=== PATIENT | male | born 1960 | race Caucasian/White ===

== ENCOUNTER 2019-09-05 10:20 | Outpatient (CLI) | payer BC, SELFPAY ==
--- NOTE | 2019-09-05 10:36 | ECG_ITS ---
Measurements Intervals [place] Rate: 59 P: 31 CA: 199 QRS: 10 QRSD: 85 T: 47 QT: 384 QTc: 382 Interpretive Statements SINUS BRADYCARDIA EARLY PRECORDIAL R/S TRANSITION BORDERLINE ECG Electronically Signed On 09-05-2019 15:35:41 SENIOR DATA ANALYST by Rinku Cheek D.O.
== END 2019-09-05 10:21 | disposition home or self-care (01) ==
PROVIDERS: PCP Internal Medicine; Visit Provider Internal Medicine
DX: I10 Essential (primary) hypertension (principal); R94.31 Abnormal electrocardiogram [ECG] [EKG]
CPT/HCPCS: 93005

== ENCOUNTER 2019-10-09 00:29 | Day surgery (SDC) | payer BC, SELFPAY ==
[2019-10-03 14:21] VITALS: BMI 33.5
--- NOTE | 2019-10-09 13:10 | WPDANESEPPF ---
Anes - Initial Pre Proc Eval Procedure: Operation Date: 10/09/19 14:30 Proposed Procedures p Screening Colonoscopy - Mitch Connell MD Date/Time: 10/09/19 13:10 Surgeon: Mitch Connell MD Pre Op Diagnosis: neoplasm screening Patient Data Age: 59 Gender: M Height: 5 ft 8 in Weight: 100 kg Allergies Allergy/AdvReac Type Severity Reaction Status Date / Time No Known Allergies Allergy Verified 10/03/19 14:15 Home Medications Medication Instructions Recorded Confirmed Type aspirin 81 mg tablet,delayed 81 mg PO DAILY 09/05/19 10/03/19 History release escitalopram oxalate 10 mg tablet 10 mg PO DAILY #90 tablet 09/05/19 10/03/19 Rx lisinopril 40 mg tablet 40 mg PO DAILY #90 tablet 09/05/19 10/03/19 Rx metformin 1,000 mg tablet 1,000 mg PO BID #180 tablet 09/05/19 10/03/19 Rx multivitamin 1 tablet PO DAILY 09/05/19 10/03/19 History pravastatin 40 mg tablet 40 mg PO DAILY #90 tablet 09/05/19 10/03/19 Rx Patient hx anesthesia problems: none Family hx anesthesia problems: none PMFSH Past Medical History Medical History (Updated 10/09/19 @ 13:14 by Keegan Le MD) Depression Diabetes Hypertension Family History Family History Mother Diabetes mellitus Bladder cancer Father Heart disease Social History Social History Smoking status: Never smoker Alcohol intake: current Gender identity (if verbalized by the patient): Male Anes - Eval Final PreProcedure Day of Procedure 10/09/19 13:10 Patient weight: obese Heart: regular rate and rhythm Lungs: clear to auscultation Airway: Mallampati scale class II Neurological: alert and oriented Last oral intake: >/= 8 hours ASA classification: III Emergent: no Anesthetic plan: proceed Anesthesia type and monitoring: general GIVS and standard monitoring Informed Consent: The patient's anesthetic plan and its attendant risks and benefits were discussed with the patient/family/POA. Questions were solicited and answers provided to the satisfaction of the patient/family/POA.
[2019-10-09 13:20] VITALS: BP 153/93; PULSE 79; RESP 18; TEMP 36.6; O2SAT 98
[2019-10-09] MEDS: LACTATED RINGERS 1,000 ML 150 ML IV CONT (13:28)
[2019-10-09 13:46] LABS: Glucose Point of Care 97 (65-105)
--- NOTE | 2019-10-09 14:52 | PM.HPGS ---
History of Present Illness History of Present Illness Consent: Risks, benefits, and alternatives have been discussed and questions answered. Patient agrees to proceed with procedure. Chief complaint: neoplasm screening Narrative: Mike Davila is a 59 year old male here for colonoscopy, last one about 8 years ago with polyps Review of Systems Constitutional: Constitutional: Denies headache(s) and Denies weakness Eyes: Eyes: Denies blurry vision ENT: Reports Normal hearing present, Denies headache(s) and Denies neck pain Cardiovascular: Cardiovascular: Denies chest pain and Denies dyspnea Respiratory: Respiratory: Denies dyspnea Gastrointestinal: Gastrointestinal: Reports no additional gastrointestinal complaints Genitourinary: Genitourinary: Denies dysuria Musculoskeletal: Musculoskeletal: Denies neck pain Integumentary/Breasts: Skin/Breast: Denies dry skin Neurologic: Reports Normal hearing present, Denies headache(s) and Denies weakness Psychiatric: Psychiatric: Denies anxiety Endocrine: Endocrine: Denies change in body appearance Hematologic/Lymphatic: Hematologic/Lymphatic: Denies easy bleeding Allergic/Immunologic: Allergic/Immunologic: Denies urticaria PMFSH Past Medical History Medical History (Updated 10/09/19 @ 14:53 by Mitch Connell MD) Depression Diabetes Hypertension Family History Family History Mother Diabetes mellitus Bladder cancer Father Heart disease Social History Social History Smoking status: Never smoker Alcohol intake: current Gender identity (if verbalized by the patient): Male Meds Home Medications and Allergies Home Medications Medication Instructions Recorded Confirmed Type aspirin 81 mg tablet,delayed 81 mg PO DAILY 09/05/19 10/09/19 History release escitalopram oxalate 10 mg tablet 10 mg PO DAILY #90 tablet 09/05/19 10/09/19 Rx lisinopril 40 mg tablet 40 mg PO DAILY #90 tablet 09/05/19 10/09/19 Rx metformin 1,000 mg tablet 1,000 mg PO BID #180 tablet 09/05/19 10/09/19 Rx multivitamin 1 tablet PO DAILY 09/05/19 10/09/19 History pravastatin 40 mg tablet 40 mg PO DAILY #90 tablet 09/05/19 10/09/19 Rx Allergies Allergy/AdvReac Type Severity Reaction Status Date / Time No Known Allergies Allergy Verified 10/09/19 13:15 Vital Signs Vital Signs - 24 hr 10/09/19 13:20 Temperature 97.8 F Pulse Rate 79 Respiratory Rate 18 Blood Pressure 153/93 H Pulse Oximetry 98 Exam Const: General: comfortable and no acute distress HENMT: General nose exam: Normal nares present Eyes: General: appearance normal, both eyes and all related structures Neck: Neck: no JVD Resp: Auscultation: clear to auscultation bilaterally Cardio: Rate: regular rate Rhythm: regular rhythm GI: Inspection: non-distended GI Palp: Yes Soft to palpation Skin: General skin exam: normal color Neuro: General: gait normal Speech: normal speech Extrem: General: normal to inspection Psych: Mental Status: mental status grossly normal Assessment and Plan Assessment and plan (1) Encounter for screening colonoscopy: Code(s): Z12.11 - Encounter for screening for malignant neoplasm of colon Status: Acute Assessment and Plan: will proceed with colonoscopy (2) Hypertension: Qualifiers: Hypertension type: essential hypertension Qualified Code(s): I10 - Essential (primary) hypertension Code(s): I10 - Essential (primary) hypertension Status: Acute
[2019-10-09 15:15] VITALS: BP 80/49; PULSE 68; RESP 23; O2SAT 99
[2019-10-09 15:25] VITALS: BP 94/50; PULSE 70; RESP 20; O2SAT 99
[2019-10-09 15:35] VITALS: BP 101/67; PULSE 63; RESP 23; O2SAT 99
== END 2019-10-09 15:42 | disposition home or self-care (01) ==
PROVIDERS: PCP Internal Medicine; Visit Provider Internal Medicine Gastroenterology
PROC: 0DJD8ZZ Inspection of Lower Intestinal Tract, Via Natural or Artificial Opening Endoscopic (ICD-10-PCS; CPT 45378; principal; 2019-10-09 14:30)
DX: Z12.11 Encounter for screening for malignant neoplasm of colon (principal); D12.3 Benign neoplasm of transverse colon; K57.30 Diverticulosis of large intestine without perforation or abscess without bleeding; K64.8 Other hemorrhoids; I10 Essential (primary) hypertension; E11.9 Type 2 diabetes mellitus without complications; F32.9 Major depressive disorder, single episode, unspecified; Z79.82 Long term (current) use of aspirin; Z79.84 Long term (current) use of oral hypoglycemic drugs; E66.9 Obesity, unspecified; Z68.33 Body mass index [BMI] 33.0-33.9, adult
CPT/HCPCS: 45385; 88305; J2704; J7120

== ENCOUNTER 2020-05-30 13:31 | Outpatient (CLI) | payer BC, SELFPAY ==
--- NOTE | ~2020-05-30 | CT_ITS ---
EXAMINATION: CT abdomen pelvis wo con DATE: 05/30/2020 13:55 INDICATION: Abdominal pain TECHNIQUE: Computed tomography (CT) of the abdomen and pelvis was performed without intravenous contr ast. Automated exposure control and iterative reconstruction technique were employed. The dose-length product was 761.36 mGy-cm. COMPARISON: None FINDINGS: Lung bases are clear. Heart size is normal. No pericardial or pleural effusion. Liver, gallbladder, p ancreas and bilateral adrenal glands are normal. Tiny splenic calcification consistent with old granu lomatous disease. 1.2 cm left renal cyst. 1.6 cm stone at a lower pole calyx of the right kidney. The re are 3 additional 1 mm stones in the right kidney. No additional stones along the normal bilateral ureters or at the left kidney. No hydronephrosis. Normal appendix. There is mild colonic diverticulos is with a sigmoid predominance. There is no adjacent inflammatory change to suggest diverticulitis. No bowel obstruction. Diffuse bladder wall thickening to at least in part to partially decompressed s garcia. No free intraperitoneal gas or fluid. No pathologically enlarged abdominal or pelvic lymphadeno denis. Increased fat within the bilateral inguinal canals which could be related to either hernias or body habitus. Moderate lower thoracic and mild lumbar spondylosis. IMPRESSION: 1. Nonobstructing right nephrolithiasis. 2. Mild diverticulosis. 3. Diffuse bladder wall thickening to at least in part to partially decompressed state although diffe rential would include cystitis, either acute or chronic. Correlate with urinalysis. Reviewed, dictated and finalized at location B. IMPRESSION: 1. Nonobstructing right nephrolithiasis. 2. Mild diverticulosis. 3. Diffuse bladder wall thickening to at least in part to partially decompresse d state although differential would include cystitis, either acute or chronic. Correlate with urinalysis.
== END 2020-05-30 13:32 | disposition home or self-care (01) ==
LOC: ANHIMG 13:37
PROVIDERS: PCP Internal Medicine; Visit Provider Internal Medicine
DX: N39.0 Urinary tract infection, site not specified (principal); R10.9 Unspecified abdominal pain; N20.0 Calculus of kidney; K57.30 Diverticulosis of large intestine without perforation or abscess without bleeding
CPT/HCPCS: 74176

== ENCOUNTER 2020-07-09 14:42 | Outpatient (CLI) | payer BC, SELFPAY ==
--- NOTE | ~2020-07-09 | XR_ITS ---
EXAMINATION: XR abdomen/kub 1V INDICATION: Calcium kidney stone TECHNIQUE: Supine views of the abdomen were obtained on 2 radiographs. COMPARISON: CT, 05/30/2020 FINDINGS: There is an unchanged 1.5 cm stone of the right kidney lower pole. No stones are identified in the left kidney or along the expected courses of the ureters or bladder. There is a phlebolith of left pelvis. A calcification projecting over the right upper quadrant corresponds to a right lower l obe granuloma seen on the comparison CT. The bowel gas pattern is normal. IMPRESSION: 1. Right nephrolithiasis. Reviewed, dictated and finalized at location A. MAKING SUPERVISOR IMPRESSION: 1. Right nephrolithiasis.
== END 2020-07-09 14:43 | disposition home or self-care (01) ==
PROVIDERS: PCP Internal Medicine; Visit Provider Urology
DX: N20.0 Calculus of kidney (principal)
CPT/HCPCS: 74018

== ENCOUNTER 2020-10-10 13:46 | Outpatient (CLI) | payer BC, SELFPAY | END 2020-10-10 13:47 | disposition home or self-care (01) | LOC: ANHCOVIDVC 13:46 | PROVIDERS: PCP Internal Medicine | DX: Z23 Encounter for immunization (principal) | CPT/HCPCS: 0001A; 91300 ==

== ENCOUNTER 2020-10-31 13:44 | Outpatient (CLI) | payer BC, SELFPAY | END 2020-10-31 13:45 | disposition home or self-care (01) | LOC: ANHCOVIDVC 13:44 | PROVIDERS: PCP Internal Medicine | DX: Z23 Encounter for immunization (principal) | CPT/HCPCS: 0002A; 91300 ==

== ENCOUNTER 2020-12-19 10:32 | Outpatient (CLI) | payer BC, SELFPAY ==
--- NOTE | 2020-12-19 10:30 | ECG_ITS ---
Measurements Intervals [place] Rate: 58 P: 41 CT: 210 QRS: 12 QRSD: 87 T: 51 QT: 375 QTc: 369 Interpretive Statements SINUS BRADYCARDIA WITH FIRST DEGREE AV BLOCK BASELINE ARTIFACT- I, II, III, AVR, AVL, AVF ABNORMAL ECG Electronically Signed On 12-19-2020 11:59:01 CDT by Rinku Cheek D.O.
[2020-12-19 11:18] LABS: INR 0.8; Prothrombin Time 11.7 Seconds (11.1-14.7)
[2020-12-19 11:19] LABS: Partial Thromboplastin Time 23.5 SECONDS (22.3-36.8)
== END 2020-12-19 10:33 | disposition home or self-care (01) ==
LOC: ANHSURGERY 10:35
PROVIDERS: PCP Internal Medicine; Visit Provider Urology
DX: Z01.818 Encounter for other preprocedural examination (principal); E11.9 Type 2 diabetes mellitus without complications; N20.0 Calculus of kidney; E78.5 Hyperlipidemia, unspecified; I10 Essential (primary) hypertension; R94.31 Abnormal electrocardiogram [ECG] [EKG]
CPT/HCPCS: 36415; 85610; 85730; 87086; 93005

== ENCOUNTER → 2020-12-23 01:19 | Outpatient (CLI) | payer BC, SELFPAY ==
[2020-12-24 19:27] LABS: SARS-CoV-2 RNA PCR Negative
== END ==
PROVIDERS: PCP Internal Medicine; Visit Provider Urology
DX: Z01.812 Encounter for preprocedural laboratory examination (principal); Z20.822 Contact with and (suspected) exposure to COVID-19
CPT/HCPCS: C9803; U0003; U0005

== ENCOUNTER 2020-12-26 00:54 | Day surgery (SDC) | payer BC, SELFPAY ==
[2020-12-16 12:39] VITALS: BMI 31.1
--- NOTE | 2020-12-25 10:32 | WPDANESEPPF ---
Anes - Initial Pre Proc Eval Procedure: Operation Date: 12/26/20 08:30 Proposed Procedures p Right Renal Extracorporeal Shock Wave Lithotripsy - Alfredo Morales MD Date/Time: 12/25/20 10:32 Surgeon: Alfredo Morales MD Pre Op Diagnosis: right renal calculus Patient Data Age: 60 Gender: M Height: 1.73 m Weight: 93 kg Allergies Allergy/AdvReac Type Severity Reaction Status Date / Time No Known Allergies Allergy Verified 12/26/20 07:27 Home Medications Medication Instructions Recorded Confirmed Type aspirin 81 mg tablet,delayed 81 mg PO DAILY 09/05/19 12/26/20 History release multivitamin 1 tablet PO DAILY 09/05/19 12/26/20 History lisinopril 40 mg tablet 40 mg PO DAILY #90 tablet 12/31/19 12/26/20 Rx pravastatin 40 mg tablet 40 mg PO DAILY #90 tablet 07/07/20 12/26/20 Rx citalopram 20 mg tablet 10 mg PO DAILY #45 tablet 10/06/20 12/26/20 Rx metformin 500 mg tablet 500 mg PO BID 12/08/20 12/26/20 History Patient hx anesthesia problems: none Family hx anesthesia problems: none [facility] Past Medical History Medical History (Updated 12/25/20 @ 10:33 by William Herrera DO) Asthma Depression Diabetes Dyslipidemia Hypertension RAVINDER (obstructive sleep apnea) Family History Family History Mother Diabetes mellitus Bladder cancer Father Heart disease Social History Social History (Updated 12/03/20 @ 11:25 by Fabi Hollis MA) Smoking packs per day: 1.75 Smoking cigarettes per day: 35.0 Years smoked: 40 Smoking pack-years: 70.00 Smoking status: Former smoker Tobacco type: cigarettes Second hand tobacco smoke exposure: No Smoking end date: 08/01/06 Alcohol intake: never Substance use: never Substance use type: does not use Living arrangements: with family Gender identity (if verbalized by the patient): Male Spiritual care concerns: No Anes - Eval Final PreProcedure Day of Procedure 12/25/20 10:32 Patient weight: obese Heart: regular rate and rhythm Lungs: clear to auscultation and normal air movement Airway: Mallampati scale class II Neurological: alert and oriented Last oral intake: >/= 8 hours ASA classification: III Emergent: no Anesthetic plan: proceed Anesthesia type and monitoring: general LMA and standard monitoring Informed Consent: The patient's anesthetic plan and its attendant risks and benefits were discussed with the patient/family/POA. Questions were solicited and answers provided to the satisfaction of the patient/family/POA.
[2020-12-26] VITALS (9 sets, daily range): BP systolic 104–146; BP diastolic 62–83; PULSE 61–76; RESP 12–18; TEMP 36–36.6; O2SAT 100
--- NOTE | ~2020-12-26 | XR_ITS ---
EXAMINATION: XR abdomen/kub 1V DATE: 12/26/2020 06:45 INDICATION: Right kidney stone. TECHNIQUE: A supine view of the abdomen on 2 radiographs was obtained. COMPARISON: CT abdomen and pelvis 05/30/2020, abdomen radiographs 07/09/2020 FINDINGS: There are no dilated loops of bowel. There are phleboliths in the pelvis. There are approxi mately 4 stones in right kidney lower pole measuring up to 15 mm. A calcified right lung nodule is co nsistent with old granulomatous disease. IMPRESSION: 1. Right kidney stones. Reviewed, dictated and finalized at location A. IMPRESSION: 1. Right kidney stones.
[2020-12-26] MEDS: LACTATED RINGERS 1,000 ML 30 ML IV CONT ×2 (07:15→09:20)
[2020-12-26 07:21] LABS: Glucose Point of Care 112 mg/dl (65-105)
--- NOTE | 2020-12-26 07:24 | WPDHPUPDATE1 ---
History and Physical Update Update Date/Time: 12/26/20 07:24 History and Physical has been reviewed, including an updated exam of the patient. There are NO changes in the patient's condition. Risks, benefits, and alternatives have been discussed and questions answered. Patient agrees to proceed with procedure.
--- NOTE | 2020-12-26 07:31 | WPDHPUPDATE1 ---
History and Physical Update Update Date/Time: 12/26/20 07:31 History and Physical has been reviewed, including an updated exam of the patient. There are NO changes in the patient's condition. Risks, benefits, and alternatives have been discussed and questions answered. Patient agrees to proceed with procedure. Will proceed with flex cysto, right retrograde, right stent placement, right renal eswl
[2020-12-26] MEDS: ceFAZolin 2 GM/D5W 50 ML 2 GM/50 ML BAG IVPB (08:27)
--- NOTE | 2020-12-26 09:08 | PM.PROC ---
Procedure Note - Detailed Date of procedure: 12/26/20 Pre-op diagnosis: right renal calculus Post-op diagnosis: same Procedure performed: Flexible cystoscopy, right retrograde pyelogram, right ureteral stent placement 4.8 Serbian contour, right renal lithotripsy Description of procedure: Patient is taken the operative suite correctly identified. Once anesthesia was obtained was placed in supine position was prepped and draped usual sterile fashion. Sixteen Serbian flexible scope inserted and bladder. He does have a mild bulbar urethral narrowing but this allowed passage of the scope. The bladder itself has no tumors. Right ureteral orifice was cannulated with a guidewire inserted up to the renal pelvis. We then placed a [place] in and did a pyelogram. This was to confirm placement of the stent in the renal pelvis. 4.8 Serbian contour stent was then passed over the guidewire with the proximal end in the renal pelvis distal end coiled in the bladder. Scope was removed. Patient was repositioned so that the stone was localized in both planes. Two thousand five hundred shocks were given to the stone. Patient tolerated procedure well without any complications taken to recovery room in stable condition. Anesthesia: GLMA Surgeon: Alfredo Morales MD Drains: Yes Packing: No Pathology: none sent Complications: No immediate complications Condition: stable Disposition: PACU
--- NOTE | 2020-12-26 11:06 | SUR.PHASEII ---
RN paged Dr. Morales overhead x2 to address aspirin. RN also called cell phone x2 and kept getting only static. RN told transitions manager and she got a hold of Dr. Morales through piano sounding board matcher via telephone.
[2020-12-30 09:36] LABS: Glucose Point of Care 114 mg/dl (65-105)
== END 2020-12-26 10:50 | disposition home or self-care (01) ==
PROVIDERS: PCP Internal Medicine; Visit Provider Urology
PROC: (CPT 50590; principal; 2020-12-26 08:30)
PROC: (CPT 52352; 2020-12-26 08:30)
DX: N20.0 Calculus of kidney (principal); E11.9 Type 2 diabetes mellitus without complications; I10 Essential (primary) hypertension; E78.5 Hyperlipidemia, unspecified; J45.909 Unspecified asthma, uncomplicated; G47.33 Obstructive sleep apnea (adult) (pediatric); F32.9 Major depressive disorder, single episode, unspecified; Z79.84 Long term (current) use of oral hypoglycemic drugs; Z79.82 Long term (current) use of aspirin; Z87.891 Personal history of nicotine dependence; E66.9 Obesity, unspecified; Z68.31 Body mass index [BMI] 31.0-31.9, adult
CPT/HCPCS: 52332; 50590; 74018; 82948; A9270; C1758; C1769; C2617; J0131; J0690; J1100; J2250; J2370; J2405; J2704; J3010; J7030; J7120; Q9966

== ENCOUNTER 2021-01-07 12:37 | Outpatient (CLI) | payer BC, SELFPAY ==
--- NOTE | ~2021-01-07 | XR_ITS ---
XR abdomen/kub 1V 01/07/2021 12:57 Indication: Right renal stone Procedure: KUB Comparison: 12/26/2020 Findings: There are clustered stones in the lower pole of the right kidney. There is a right internal ureteral stent present. There are multiple distal right ureteral stones. Bowel pattern is nonobstruc tive. No acute osseous abnormality. Lung bases are unremarkable. No acute osseous abnormality. Impression: 1: Right renal and distal ureteral stones. Right internal ureteral stent in expected position. Reviewed, dictated and finalized at location A. Impression: 1: Right renal and distal ureteral stones. Right internal ureteral stent in exp ected position.
== END 2021-01-07 12:38 | disposition home or self-care (01) ==
LOC: ANHIMG 12:40
PROVIDERS: PCP Internal Medicine; Visit Provider Urology
DX: N20.1 Calculus of ureter (principal)
CPT/HCPCS: 74018

== ENCOUNTER 2021-01-19 13:49 | Outpatient (CLI) | payer BC, SELFPAY ==
--- NOTE | ~2021-01-19 | XR_ITS ---
XR abdomen/kub 1V 01/19/2021 14:06 Indication: Renal stones Procedure: KUB Comparison: 01/07/2021 Findings: There is a right internal ureteral stent in expected position. There are right renal and di stal ureteral stones. Bowel gas pattern is nonobstructive. No acute osseous abnormality. Impression: 1: Right renal and distal ureteral stones. Reviewed, dictated and finalized at location B. Impression: 1: Right renal and distal ureteral stones.
== END 2021-01-19 13:50 | disposition home or self-care (01) ==
LOC: ANHIMG 13:53
PROVIDERS: PCP Internal Medicine; Visit Provider Urology
DX: N20.0 Calculus of kidney (principal)
CPT/HCPCS: 74018

== ENCOUNTER 2021-02-03 12:32 | Outpatient (CLI) | payer BC, SELFPAY ==
--- NOTE | ~2021-02-03 | XR_ITS ---
EXAMINATION: XR abdomen/kub 1V EXAM DATE: 02/03/2021 12:49 INDICATION: Calcium kidney stone. RT right-sided stent, kidney stones. TECHNIQUE: Frontal projection(s) of the abdomen for interpretation. Comparison is made to prior exami nation from 01/19/2021. FINDINGS: Right double-J ureteral stent in position. There are multiple stone fragments in the dista l aspect of the right ureter, probably some decrease in stone burden compared to prior study. There i s stool overlying the right renal contour, but there may be some small calyceal stone fragments as we ll. Left renal contour is unremarkable. Lung bases are clear. There are mild bony degenerative change s. IMPRESSION: 1. Multiple right ureteral stone fragments, mild decrease in stone burden. 2. Stent in position. Reviewed, dictated and finalized at location B.
== END 2021-02-03 12:33 | disposition home or self-care (01) ==
LOC: ANHIMG 12:36
PROVIDERS: PCP Internal Medicine; Visit Provider Urology
DX: N20.0 Calculus of kidney (principal)
CPT/HCPCS: 74018

== ENCOUNTER 2021-02-16 08:43 | Outpatient (CLI) | payer BC, SELFPAY ==
--- NOTE | 2021-03-04 15:06 | WPDHOMESLEEP ---
Sleep Study - Home Unattended Date of Study: 02/16/21 Ordering Provider: Ranjit Humphries MD Interpreting Provider: Bianca Vidales MD Home Sleep Study Type: Apnea Link Air Height: 1.73 m Weight: 92.986 kg Body Mass Index: 31.1 Neck Circumference (inches): 17 [place]: 10 Reason for Sleep Study history of obstructive sleep apnea, now has lost weight, repeat testing Sleep History Mike Davila is a 61 year old man with a history of obstructive sleep apnea. In August 19, 2005 he had a sleep study [facility] in [place] when he weighed 260 lb. In June 09, 2017 he had a sleep study at [facility] in [place] when he weighed 225 lb. Currently he weighs 205 lb. There is no family history of sleep problems. He has had 2 different CPAP machines but after losing weight he stopped using these. He rarely awakens from sleep feeling short of breath. He never awakens at night with heartburn, belching or coughing. He occasionally snores. He rarely snores loudly enough that others complain about it. He never has trouble sleeping with a cold. He does not wake up suddenly gasping for breath during the night. He does not have breathing problems at night observed by others. He rarely sweats excessively at night, rarely notices his heart pounding or beating irregularly at night and he rarely falls asleep during the day. He does not fall asleep involuntarily or while driving. He does not have loss of muscle tone was strong emotion. He does not have daytime difficulties due to excessive sleepiness. He does not feel paralyzed on waking or falling asleep. He does not have vivid dreamlike scenes upon awakening or falling asleep. He does not feel afraid to go to sleep. He does not have nightmares. He rarely remembers his dreams. He rarely has racing thoughts. He does not feel sad or depressed. He occasionally feels anxiety. He occasionally has muscular tension. He rarely notices parts of his body jerking. He rarely kicks at night. He occasionally has crawling and aching feelings in his legs. He occasionally has leg pain at night. He does not have morning jaw pain and does not grind his teeth during sleep. He rarely is bothered by pain during the day. He never is awakened by pain at night. He does not wake up feeling stiff the morning. He rarely wakes up with sore or achy muscles. He does not wake up with pain in the neck and spine. He has fatigue. He reports a 5-10 lb weight loss in the last year. Normal bedtime is 1:00 a.m. falling asleep within 20 minutes waking during the night to urinate. He wakes the morning at 6:00 a.m.. His weekend schedule is the same. He is getting between 4 and 6 hours of sleep at night. He takes naps in the afternoon or evening. A short nap may be refreshing. He feels better in the morning compared to other times of day. Habits: quit tobacco in 2006. Caffeine 3 cups, 10 oz each of coffee daily. No alcohol or recreational drugs. [facility] Past Medical History Medical History (Updated 03/04/21 @ 15:16 by Bianca Vidales MD) Asthma Depression Diabetes Dyslipidemia Hypertension Kidney stone RAVINDER (obstructive sleep apnea) Family History Family History Mother Diabetes mellitus Bladder cancer Father Heart disease Social History Social History Smoking packs per day: 1.75 Smoking cigarettes per day: 35.0 Years smoked: 40 Smoking pack-years: 70.00 Smoking status: Former smoker Tobacco type: cigarettes Second hand tobacco smoke exposure: No Smoking end date: 10/01/06 Additional smoking assessment comments: 30 yrs 1-2PPD Alcohol intake: current Alcohol use details: rare Substance use: never Substance use type: does not use Living arrangements: with family Gender identity (if verbalized by the patient): Male Spiritual care concerns: No Medications Ho
[2021-03-04 15:19] VITALS: BMI 31.1
== END 2021-02-17 10:08 | disposition home or self-care (01) ==
LOC: ANHCSM 08:43
PROVIDERS: PCP Internal Medicine; Visit Provider Internal Medicine
DX: G47.33 Obstructive sleep apnea (adult) (pediatric) (principal); G47.10 Hypersomnia, unspecified
CPT/HCPCS: 74018; 95806

== ENCOUNTER 2021-02-16 13:08 | Outpatient (CLI) | payer BC, SELFPAY ==
--- NOTE | ~2021-02-16 | XR_ITS ---
EXAMINATION: XR abdomen/kub 1V INDICATION: Calcium kidney stone TECHNIQUE: Supine views of the abdomen were obtained on 2 radiographs. COMPARISON: 02/03/2021 FINDINGS: A right internal ureteral stent is in expected position. There are at least five stones adj acent to the distal aspect of the stent which measure up to 6 mm. There is been slight decrease in nu mber of stones since the comparison examination. Punctate right nephrolithiasis is noted. A calcified granuloma is noted in the right lower lobe. IMPRESSION: 1. Multiple stones, with interval decrease in number, adjacent to the distal aspect of the right inte rnal ureteral stent which is in expected position. Reviewed, dictated and finalized at location B. IMPRESSION: 1. Multiple stones, with interval decrease in number, adjacent to the distal as pect of the right internal ureteral stent which is in expected position.
== END 2021-02-16 13:09 | disposition home or self-care (01) ==
LOC: ANHIMG 13:11
PROVIDERS: PCP Internal Medicine; Visit Provider Urology
DX: N20.0 Calculus of kidney (principal); Z96.0 Presence of urogenital implants
CPT/HCPCS: 74018

== ENCOUNTER 2021-02-26 07:59 | Outpatient (CLI) | payer BC, SELFPAY ==
[2021-02-26 09:41] LABS: Anion Gap 8 mmol/L (8-16); Blood Urea Nitrogen 17 mg/dL (9-20); Calcium 10.5 mg/dL (8.4-10.2); Carbon Dioxide 27 mmol/L (22-30); Chloride 104 mmol/L (98-107); Estimated Glomerular Filt Rate > 60; Glucose 104 mg/dL (65-110); Potassium 4.2 mmol/L (3.4-5.0); Sodium 139 mmol/L (137-145)
== END 2021-02-26 08:00 | disposition home or self-care (01) ==
LOC: ANHSURGERY 08:01
PROVIDERS: Anesthesiology; PCP Internal Medicine; Visit Provider Urology
DX: Z01.818 Encounter for other preprocedural examination (principal); N20.0 Calculus of kidney
CPT/HCPCS: 36415; 80048; 87086

== ENCOUNTER 2021-03-03 00:44 | Day surgery (SDC) | payer BC, SELFPAY ==
[2021-02-24 14:28] VITALS: BMI 31.1
[2021-03-03] VITALS (10 sets, daily range): BP systolic 100–132; BP diastolic 58–83; PULSE 58–69; RESP 11–16; TEMP 36.1–36.5; O2SAT 97–100
--- NOTE | ~2021-03-03 | XR_ITS ---
EXAMINATION: XR retrograde pyelo w/stent RT DATE: 03/03/2021 09:12 INDICATION: Right kidney stones. TECHNIQUE: 7 intraoperative fluoroscopic views of the abdomen and pelvis were obtained. I was not pre sent. Fluoroscopy exposure time was 25 seconds. COMPARISON: Abdomen radiographs 02/16/2021 FINDINGS: The repair electric motor assembler images demonstrate a right internal ureteral stent in expected position. The righ t-sided retrograde pyelogram is unremarkable. The final images demonstrate a right internal ureteral stent in expected position. IMPRESSION: 1. Right internal ureteral stent exchange with new stent in expected position. Reviewed, dictated and finalized at location A.
[2021-03-03] MEDS: LACTATED RINGERS 1,000 ML 30 ML IV CONT ×2 (07:01→09:56)
[2021-03-03 07:04] LABS: Glucose Point of Care 112 mg/dl (65-105)
--- NOTE | 2021-03-03 07:49 | WPDANESEPPF ---
Anes - Initial Pre Proc Eval Procedure: Operation Date: 03/03/21 08:30 Proposed Procedures p Cystoscopy, Right Retrograde Pyelogram, Right Ureteroscopy, Possible Stone Extraction, Possible Stent - Alfredo Morales MD s Possible Holmium Laser Procedure - Alfredo Morales MD Date/Time: 03/03/21 07:49 Surgeon: Alfredo Morales MD Pre Op Diagnosis: renal kindey stones Patient Data Age: 60 Gender: M Height: 1.73 m Weight: 97 kg Last Vital Signs Temp 36.5 C 03/03/21 06:27 Pulse 67 03/03/21 06:27 Resp 16 03/03/21 06:27 BP 124/71 03/03/21 06:27 Pulse Ox 99 03/03/21 06:27 Allergies Allergy/AdvReac Type Severity Reaction Status Date / Time No Known Allergies Allergy Verified 03/03/21 06:49 Home Medications Medication Instructions Recorded Confirmed Type aspirin 81 mg tablet,delayed 81 mg PO DAILY 09/05/19 03/03/21 History release multivitamin 1 tablet PO DAILY 09/05/19 03/03/21 History lisinopril 40 mg tablet 40 mg PO DAILY #90 tablet 12/30/20 03/03/21 Rx metformin 500 mg tablet 500 mg PO BID 90 Days #180 tablet 12/30/20 03/03/21 Rx pravastatin 40 mg tablet 40 mg PO DAILY #90 tablet 12/30/20 03/03/21 Rx citalopram 20 mg tablet 10 mg PO DAILY #45 tablet 01/07/21 03/03/21 Rx cholecalciferol (vitamin D3) 50 mcg PO DAILY 02/24/21 03/03/21 History [Vitamin D3] omega-3 fatty acids [Fish Oil] 1,000 mg PO DAILY 02/24/21 03/03/21 History Laboratory Tests 03/03/21 07:00 POC Capillary Glucose 112 mg/dl H mg/dl (65-105) Patient hx anesthesia problems: none Family hx anesthesia problems: none PMFSH Past Medical History Medical History Asthma Depression Diabetes Dyslipidemia Hypertension RAVINDER (obstructive sleep apnea) Family History Family History Mother Diabetes mellitus Bladder cancer Father Heart disease Social History Social History Smoking packs per day: 1.75 Smoking cigarettes per day: 35.0 Years smoked: 40 Smoking pack-years: 70.00 Smoking status: Former smoker Tobacco type: cigarettes Second hand tobacco smoke exposure: No Smoking end date: 10/01/06 Additional smoking assessment comments: 30 yrs 1-2PPD Alcohol intake: current Alcohol use details: rare Substance use: never Substance use type: does not use Living arrangements: with family Gender identity (if verbalized by the patient): Male Spiritual care concerns: No Anes - Eval Final PreProcedure Day of Procedure 03/03/21 07:49 Patient weight: obese Heart: regular rate and rhythm Lungs: clear to auscultation Airway: Mallampati scale class II Neurological: alert and oriented Last oral intake: >/= 8 hours ASA classification: III Emergent: no Anesthetic plan: proceed Anesthesia type and monitoring: general LMA and standard monitoring Informed Consent: The patient's anesthetic plan and its attendant risks and benefits were discussed with the patient/family/POA. Questions were solicited and answers provided to the satisfaction of the patient/family/POA.
--- NOTE | 2021-03-03 08:11 | WPDHPUPDATE1 ---
History and Physical Update Update Date/Time: 03/03/21 08:11 History and Physical has been reviewed, including an updated exam of the patient. There are NO changes in the patient's condition. Risks, benefits, and alternatives have been discussed and questions answered. Patient agrees to proceed with procedure.
[2021-03-03] MEDS: ceFAZolin 2 GM/D5W 50 ML 2 GM/50 ML BAG IVPB (08:34)
[2021-03-03] MEDS: LIDOCAINE HCL 2% GEL UROJET 10 ML PKG MUCOUS MEM (08:55)
--- NOTE | 2021-03-03 09:06 | P.OP_ITS ---
Procedure Note - Detailed Date of Procedure 03/03/21 Pre-op Diagnosis Right renal and ureteral calculi Post-op Diagnosis other ( recent passage of both ureteral and renal calculi) Procedure Performed cystoscopy, right retrograde pyelogram, right ureteroscopy, right stent exchange 4.8 Vietnamese contour, urethral dilation to 24 Vietnamese Surgeon Alfredo Morales MD Anesthesia general Findings recent passage of all distal ureteral and renal calculi Description of Procedure patient is taken to the operative suite and correctly identified. Once anesthesia was obtained he was placed in dorsal lithotomy position and prepped and draped usual sterile fashion. Twenty-two Vietnamese scope could not be passed in the meatus. We thus dilated using male sounds up to 24 Vietnamese. The 22 Vietnamese scope was then inserted. The prior stent was visualized grasped and brought out the meatus. A guidewire was passed through the stent. We then placed a rigid ureteral scope into the distal ureter and passed all the way up to the proximal ureter. The stones that were on preoperative KUB had passed. We then placed a ureteral access sheath in. Mini flexible ureteral scope was inserted. The kidney was inspected in its entirety. There was no residual stones. He does have a small calcification which is up mucosa in the papilla of the lower pole. Pyelogram was then performed to confirm placement the stent. 4.8 Vietnamese contour stent was then placed with the proximal end coiled in the renal pelvis and the distal in the bladder. 2% viscous lidocaine was inserted into the urethra patient is taken recovery stable condition. He will follow up in a week's time for stent removal. Drains Yes Packing No Pathology none sent Complications No immediate complications Condition stable Disposition PACU
[2021-03-03 10:11] LABS: Glucose Point of Care 85 mg/dl (65-105)
== END 2021-03-03 11:30 | disposition home or self-care (01) ==
PROVIDERS: PCP Internal Medicine; Visit Provider Urology
PROC: (CPT 52352; principal; 2021-03-03 08:30)
DX: N20.2 Calculus of kidney with calculus of ureter (principal); Z79.82 Long term (current) use of aspirin; Z79.84 Long term (current) use of oral hypoglycemic drugs; J45.909 Unspecified asthma, uncomplicated; E11.9 Type 2 diabetes mellitus without complications; I10 Essential (primary) hypertension; G47.33 Obstructive sleep apnea (adult) (pediatric); Z87.891 Personal history of nicotine dependence; E66.9 Obesity, unspecified; Z68.32 Body mass index [BMI] 32.0-32.9, adult
CPT/HCPCS: 52332; 74420; 82948; A9270; C1769; C1894; C2617; J0690; J2250; J2405; J2704; J3010; J7120; Q9966

== ENCOUNTER 2021-06-19 13:56 | Outpatient (CLI) | payer BC, SELFPAY ==
--- NOTE | ~2021-06-19 | CT_ITS ---
EXAMINATION: CT abdomen wo/w con EXAM DATE: 06/19/2021 14:48 INDICATION: Renal mass. TECHNIQUE: Spiral CT of the abdomen was performed without and then with intravenous injection of 100 mL Omnipaque 350. Axial, coronal and sagittal images of the abdomen were reviewed. The dose-length product (DLP) for this examination was 1755.56 mGy-cm. The exposure was tailored according to patie nt size (auto mA exposure control), and iterative reconstruction (ASIR) was used as additional dose r eduction technique. Comparison is made to prior examination from 05/30/2020. FINDINGS: There are several punctate right inferior calyceal stones. No left nephrolithiasis or proxi mal ureteral stones. There is a cyst in the superior pole of the left kidney measuring 1.2 cm. There is mild chronic fat stranding surrounding the kidneys. No suspicious renal mass specifically identifi ed but correlation could be made with outside imaging if available and addendum added. The liver, spleen, adrenal glands and pancreas are unremarkable. Gallbladder is unremarkable. No bi liary obstruction. There is no retroperitoneal lymphadenopathy. Minimal abdominal aortic arterios clerosis. There is mild scattered colonic diverticulosis. There is no adjacent inflammatory change to suggest diverticulitis. The stomach and small bowel are unremarkable. There is expected amount of colonic st ool. No free intraperitoneal gas. The heart is normal in size. There are no pericardial or pleur al effusions. Right posterior sulcal calcified granuloma. IMPRESSION: 1. No acute intra-abdominal findings. 2. Punctate right nephrolithiasis. 3. Mild colonic diverticulosis. Reviewed, dictated and finalized at location B. MACY TECHNICIAN ASSISTANT
[2021-06-19 14:40] LABS: Estimated Glomerular Filt Rate 48
== END 2021-06-19 13:57 | disposition home or self-care (01) ==
PROVIDERS: PCP Internal Medicine; Visit Provider Urology
DX: N28.89 Other specified disorders of kidney and ureter (principal); N20.0 Calculus of kidney; K57.90 Diverticulosis of intestine, part unspecified, without perforation or abscess without bleeding
CPT/HCPCS: 74170; Q9967

== ENCOUNTER 2021-06-19 14:05 | Outpatient (CLI) | payer BC, SELFPAY ==
--- NOTE | ~2021-06-19 | CT_ITS ---
EXAMINATION:CT lung screening DATE: 06/19/2021 14:48 INDICATION: Personal history of nicotine dependence. Smoker who quit 14 years ago with 35 pack year h istory. TECHNIQUE: Computed tomography (CT) of the chest was performed without intravenous contrast. Automate d exposure control and iterative reconstruction technique were employed. The dose-length product (DLP ) was 248.65 mGy-cm. COMPARISON: CT abdomen and pelvis 05/30/2020 FINDINGS: There is mild emphysema. Calcified bilateral lung nodules and calcified hilar lymph nodes a re consistent with old granulomatous disease. There is mild atelectasis in lingula. No pleural effusi on. The heart size is normal. No pericardial effusion. There is moderate thoracic spondylosis. There is a benign bone island in the T1 posterior elements. IMPRESSION: 1. Lung-RADS category 1: Negative. Continue annual screening with noncontrast low-dose chest CT in 12 months. Reviewed, dictated and finalized at location A. STATION ATTENDANT IMPRESSION: 1. Lung-RADS category 1: Negative. Continue annual screening with noncontrast l ow-dose chest CT in 12 months.
== END 2021-06-19 14:06 | disposition home or self-care (01) ==
LOC: ANHIMG 14:06
PROVIDERS: PCP Internal Medicine; Visit Provider Internal Medicine
DX: Z12.2 Encounter for screening for malignant neoplasm of respiratory organs (principal); Z87.891 Personal history of nicotine dependence
CPT/HCPCS: 71271; 74170; Q9967

== ENCOUNTER 2024-01-12 14:52 | Outpatient (CLI) | payer BC, SELFPAY ==
--- NOTE | ~2024-01-12 | CT_ITS ---
CT Scan of the Chest without Contrast: Clinical Indication: Lung cancer screening, nicotine dependence Technique: Contiguous sections were acquired throughout the chest without intravenous contrast. Dose reduction technique was used on this scan by utilizing automated exposure control and iterative recon struction technique. The dose-length product (DLP) was 385.78 mGy-cm. COMPARISON: 06/19/2021 Findings: There is no evidence of any significant mediastinal, hilar or axillary lymphadenopathy. The mediastin al soft tissues appear normal. There is no evidence of pleural or pericardial effusion. The lungs are clear, aside from several calcified granulomas. Images through the upper abdomen reveal no abnormalities. Impression: Lung RADS 2: Benign. 12 month follow-up screening CT advised. Reviewed, dictated and finalized at location . Impression: Lung RADS 2: Benign. 12 month follow-up screening CT advised.
== END 2024-01-12 14:53 | disposition home or self-care (01) ==
PROVIDERS: PCP Family Medicine; Visit Provider Nurse Practitioner
DX: Z12.2 Encounter for screening for malignant neoplasm of respiratory organs (principal); Z87.891 Personal history of nicotine dependence
CPT/HCPCS: 71271

== ENCOUNTER 2024-07-16 13:58 | Outpatient (CLI) | payer BC, SELFPAY ==
--- NOTE | ~2024-07-16 | XR_ITS ---
EXAMINATION: XR abdomen/kub 1V DATE: 07/16/2024 14:19 INDICATION: Other difficulties with micturition. TECHNIQUE: A supine view of the abdomen was obtained. COMPARISON: Abdomen radiographs 02/16/2021 FINDINGS: There are no dilated loops of bowel. There is a small volume of stool in the colon. There a re phleboliths in the pelvis. IMPRESSION: 1. Normal bowel gas pattern. Reviewed, dictated and finalized at location A. PRODUCTION WORKER
== END 2024-07-16 13:59 | disposition home or self-care (01) ==
PROVIDERS: PCP Family Medicine; Visit Provider Family Medicine
DX: R39.198 Other difficulties with micturition (principal)
CPT/HCPCS: 74018

== ENCOUNTER 2024-12-17 00:14 | Day surgery (SDC) | payer BC, SELFPAY ==
[2024-12-07 11:05] VITALS: BMI 35.0
--- OUTSIDE RECORDS SUMMARY | 2024-12-17 00:18 | XMS_ITS | Continuity of Care Document ---
Author Organization [facility] Address [address] [place] [address] [place] [address] Phone Care Team Providers Care Long Winder Tender Name Role Phone Jt Richardson MD Unavailable Unavailable Advance Directives Directive Yes / No Effective Date File Name No Information Encounters Encounter Description Practice Location Reason(s) For Visit Diagnoses Date Provider Providers Copied on Encounter [facility], [id number] [place] [address] [address], [place], [place], [id number], [place] tel:[phone] [facility] No Information 0 [phone] Debra Waters. [address] [facility] [address], [place], [place], [id number], [place]. tel:[phone] Family History Family Member Type Diagnosis Age At Onset No Information Payers Payer name Insurance type Covered libertarian ID Authoriza tion(s) No Information Social History Type Description Quantity Date Captured Comments Sex Male Smoking Status No Information Chief Complaint And Reason For Visit No Information Reason For Referral Reason For Referral No Information History Of Present Illness Encounter Date Complaint History Of Prese nt Illness No Information Functional Status Date Functional Assessmen t No Information Instructions Date Instruction Additional Infor mation No Information Assessments Type Assessment Date No Information Patient Care Teams Name Effective Dates (start - stop) Status Members No Information
--- OUTSIDE RECORDS SUMMARY | 2024-12-17 00:18 | XMS_ITS | Clinical Summary ---
Author Organization [facility] Administrative Offices Address [address] [place] [id number] Care Team Providers Care Head Golf Professional Name Role Phone Brittney Amado Primary Care Provider Allergies No known active allergies Medications lisinopril (PRINIVIL) 40 mg tablet Take 40 mg by mouth daily. Active metFORMIN (GLUCOPHAGE) 1,000 mg tablet Take 1,000 mg by mouth 2 times daily with meals. Active pravastatin (PRAVACHOL) 40 mg tablet Take 40 mg by mouth late in the day. Active aspirin (ECOTRIN EC) 81 mg Tablet, Delayed Release (E.C.) Take 81 mg by mouth daily. Active FOLIC ACID/MULTIVIT-SD N/LUTEIN (CENTRUM SILVER ORAL) Take by mouth. Active escitalopram oxalate (LEXAPRO) 10 mg tablet Take 10 mg by mouth daily. Active Active Problems No known active problems Immunizations Immunization Administration Dates Next Due Influenza Seasonal Unspecified Formulation IM Family History Relation Name Status Comments Father Other Mother Alive Social History Tobacco Use Types Packs/Day Years Used Date Smoking Tobacco: Former Cigarettes Q uit: 2008 Smokeless Tobacco: Never Alcohol Use Standard Drinks/Week Comments Yes 0 (1 standard drink = 0.6 oz pur e alcohol) occasionally Sex and Gender Information Value Date Recorded Sex Assigned at Not on file Legal Sex Male 3:09 PM CDT Gender Identity Not on file Sexual Orientation Not on file Last Filed Vital Signs Vital Sign Reading Time Taken Comments Blood Pressure 110/68 08/18/2017 8:52 AM PERL SOFTWARE ENGINEER Pulse 68 08/18/2017 8:52 AM PERL SOFTWARE ENGINEER Temperature - - Respiratory Rate 20 08/18/2017 8:52 AM PERL SOFTWARE ENGINEER Oxygen Saturation 97% 08/18/2017 8:52 AM PERL SOFTWARE ENGINEER ra Inhaled Oxygen Concentration - - Weight 99.3 kg (219 lb) 08/18/2017 8:52 AM PERL SOFTWARE ENGINEER Height 172.7 cm (5' 8 ) 08/18/2017 8:52 AM PERL SOFTWARE ENGINEER Body Mass Index 33.3 08/18/2017 8:52 AM PERL SOFTWARE ENGINEER Plan of Treatment Health Maintenance Due Date Last Done Comments DTAP/TDAP/TD VACCINES (1 - Tdap) 1980 COLORECTAL SCREENING 2006 Colorectal Cancer Screening 2006 FIT-DNA Q 3 years 2006 FIT/FOBT Q 1 year 2006 Flex Sig/CT Colonography Q 5 years 2006 ZOSTER VACCINE (1 of 2) 2011 INFLUENZA VACCINE (#1) 2024 05/02/2017 RSV VACCINE (60+ or ) (1 - 1-dose 75+ series) 2036 Care Teams Head Golf Professional Relationship Specialty Start Date End Date Brittney Amado DO PCP - General Family Practice 01/28/17
--- OUTSIDE RECORDS SUMMARY | 2024-12-17 00:18 | XMS_ITS | Clinical Summary ---
Author Organization [facility] Address [address] [place] [address] Care Team Providers Care Pit Hoist Operator Name Role Phone Unavailable Primary Care Provider Unavailabl e Source Comments [facility],non-owned Affiliates and Associated Physician Practices is amultiple site organization consisting of ambulatory clinics and hospital sitesin [place], [place], [place] and [place]. This disclosure is being madepursuant to the Care Everywhere program and may not contain all information available regarding this patient. Last updated 18.[facility] Allergies No known active allergies Medications * Be aware that medications may not be up to date on this document. Alwaysverify current medications with the patient. ADVAIR DISKUS IN Inhale by mouth. Active PROVENTIL IN Inhale by mouth. Active FLOMAX PO Take by mouth. Active lorazepam (ATIVAN) 0.5 MG tablet Take 0.5 mg by mouth every 8 hours as needed for Anxiety. Active escitalopram (LEXAPRO) 10 MG tablet Take 10 mg by mouth daily. Active lisinopril (PRINIVIL; ZESTRIL) 10 MG tablet Take 10 mg by mouth daily. Active hydrocodone-acet aminophen (NORCO) 5-325 MG tablet Take 1-2 Tabs by mouth every 4 hours as needed for Pain. 60 2 09/11/2009 Active Active Problems Problem Noted Date Diagnosed Date fall09/10/2009 Social History Tobacco Use Types Packs/Day Years Used Date Smoking Tobacco: Former Cigarettes Q uit: 02/07/2007 Alcohol Use Standard Drinks/Week Comments Yes 0 (1 standard drink = 0.6 oz pur e alcohol) occ Sex and Gender Information Value Date Recorded Sex Assigned at Not on file Legal Sex Male 8:30 AM SUPERVISOR BLOOD DONOR RECRUITERS Gender Identity Not on file Sexual Orientation Not on file Last Filed Vital Signs Vital Sign Reading Time Taken Comments Blood Pressure 141/89 09/11/2009 10:10 AM SUPERVISOR BLOOD DONOR RECRUITERS Pulse 86 09/11/2009 10:10 AM SUPERVISOR BLOOD DONOR RECRUITERS Temperature 36.8 C (98.3 F) 09/11/2009 10:10 AM SUPERVISOR BLOOD DONOR RECRUITERS Respiratory Rate 20 09/11/2009 10:10 AM SUPERVISOR BLOOD DONOR RECRUITERS Oxygen Saturation 98% 09/11/2009 10:10 AM SUPERVISOR BLOOD DONOR RECRUITERS Inhaled Oxygen Concentration - - Weight 115.7 kg (255 lb) 09/10/2009 3:01 AM SUPERVISOR BLOOD DONOR RECRUITERS Height 172.7 cm (5' 8 ) 09/10/2009 3:01 AM SUPERVISOR BLOOD DONOR RECRUITERS Body Mass Index 38.77 09/10/2009 3:01 AM SUPERVISOR BLOOD DONOR RECRUITERS Plan of Treatment Health Maintenance Due Date Last Done Comments COLOGUARD (AGES 45-75) - COL ON CA SCREENING 1961 COLON MONITORING 1961 COLONOSCOPY - COLON CA SCREENING 1961 CT COLONOGRAPHY - COLON CA SCREENING 1961 Colorectal Cancer Screening 1961 FIT - COLON CA SCREENING 1961 FLEX SIG - COLON CA SCREENING 1961 LIPID TESTING 1961 HIV SCREENING 1976 HEPATITIS C SCREENING 02/28/1979 DTAP/TDAP/TD VACCINES (1 - Tdap) 1980 PNEUMOCOCCAL VACCINE 50+ (1 of 1 - PCV) 2011 ZOSTER VACCINE (1 of 2) 2011 COVID-19 VACCINE ( - 2023-2 5 season) 2024 DEPRESSION SCREENING 08/01/2024 INFLUENZA VACCINE (Season Ended) 2025 Respiratory Syncytial Virus (RSV) Vaccine Pt: or over 60 yrs (1 - 1-dose 75+ series) 2036 HEPATITIS B VACCINE Aged Out No longe r eligible based on patient's age to complete this topic HIB VACCINE Aged Out No longer eligi ble based on patient's age to complete this topic HPV VACCINE Aged Out No longer eligi ble based on patient's age to complete this topic MENINGOCOCCAL (Group B) VACC INE SHARED DECISION-MAKING Aged Out No longer eligibl e based on patient's age to complete this topic MENINGOCOCCAL GROUPS A/C/Y/W VACCINE Aged Out No longer eligible b ased on patient's age to complete this topic Insurance [employer] Advance Directives * Full Code (Latest Code Status on File) Date Activated Date Inactivated Comments 09/10/2009 6:53 AM 09/11/2009 10:45 PM
--- OUTSIDE RECORDS SUMMARY | 2024-12-17 00:18 | XMS_ITS | CONTINUITY OF CARE DOCUMENT ---
Author Name nolan francisco Address Unknown Organization [facility] Address [id number] [place] [address] [address] [place] [address] Phone [phone] Care Team Providers Care Boat Outfitter Name Role Phone TATA RODRIGUEZ MD Unavailable [phone] INSURANCE PROVIDERS Payer name Policy type / Coverage type Stephanie red democrat ID CHRISY- OPEN ACCESS/PPO Other [id number]
[2024-12-17 11:06] VITALS: BMI 33.8
[2024-12-17 11:09] VITALS: BP 143/84; PULSE 78; RESP 18; TEMP 36.2; O2SAT 100
[2024-12-17] MEDS: LACTATED RINGERS 1,000 ML 150 ML IV CONT (11:19)
[2024-12-17 11:20] LABS: Glucose Point of Care 119 mg/dl (65-105)
--- NOTE | 2024-12-17 12:00 | WPDANESEPPF ---
Anes - Initial Pre Proc Eval Procedure: Operation Date: 12/17/24 12:30 Proposed Procedures p Colonoscopy - Mitch Connell MD Date/Time: 12/17/24 12:00 Surgeon: Mitch Connell MD Pre Op Diagnosis: Personal history of colon polyps, unspecified Patient Data Age: 64 Gender: M Height: 1.73 m Weight: 100.9 kg Last Vital Signs Temp 36.2 C L 12/17/24 11:09 Pulse 78 12/17/24 11:09 Resp 18 12/17/24 11:09 BP 143/84 H 12/17/24 11:09 Pulse Ox 100 12/17/24 11:09 O2 Del Method Room Air 12/17/24 11:09 Allergies Allergy/AdvReac Type Severity Reaction Status Date / Time No Known Allergies Allergy Verified 12/17/24 11:05 Home Medications Medication Instructions Recorded Confirmed Type multivitamin 1 tablet PO DAILY 09/05/19 12/17/24 History omega-3 fatty acids 1,000 mg PO DAILY 02/24/21 12/17/24 History cholecalciferol (vitamin D3) 125 125 mcg PO DAILY 07/06/23 12/17/24 History mcg (5,000 unit) tablet citalopram 20 mg tablet See Rx Instructions .Route 03/30/24 12/17/24 Rx .COMPLEX #90 tabs metformin 500 mg tablet See Rx Instructions .Route 05/17/24 12/17/24 Rx .COMPLEX #180 tabs albuterol sulfate 90 mcg/actuation 2 inh inhalation Q4H PRN shortness 05/31/24 12/07/24 Rx aerosol inhaler of breath or wheezing #8.5 grams pravastatin 40 mg tablet 40 mg PO DAILY #90 tabs 05/31/24 12/17/24 Rx cholecalciferol (vitamin D3) 1,250 1,250 mcg PO WEEKLY #14 caps 07/20/24 12/07/24 Rx mcg (50,000 unit) capsule fenofibrate micronized 134 mg See Rx Instructions .Route 11/20/24 12/17/24 Rx capsule .COMPLEX #90 caps lisinopril 40 mg tablet See Rx Instructions .Route 11/20/24 12/17/24 Rx .COMPLEX #90 tabs Laboratory Tests 12/17/24 11:16 POC Capillary Glucose 119 H mg/dl (65-105) Patient hx anesthesia problems: other (burning from propofol) Family hx anesthesia problems: none Results Review: All pre-operative results and documents have been reviewed as part of the pre-operative evaluation. [facility] Past Medical History Medical History Asthma COVID-19 vaccine series completed Recurrent UTI Abdominal pain UTI (urinary tract infection) Kidney stone Diabetes Depression Hypertension Encounter for screening colonoscopy Dyslipidemia Prostate cancer screening RAVINDER (obstructive sleep apnea) Resolved. CPAP titration in 2020 AHI was 2. Family History Family History Mother Diabetes mellitus Bladder cancer Father Heart disease Social History Social History Smoking packs per day: 1.75 Smoking cigarettes per day: 35.0 Years smoked: 40 Smoking pack-years: 70.00 Smoking status: Former smoker Tobacco type: cigarettes Second hand tobacco smoke exposure: No Smoking end date: 10/01/06 Additional smoking assessment comments: 30 yrs 1-2PPD Alcohol intake: current Alcohol use details: very rare Substance use: never Substance use type: does not use Lack of Transportation: No Lack of Food: Never True Current Housing: I Have Housing Concerned About Future Housing: No Difficulty Paying Gas/Electric Bills: No Difficulty Paying for Meds: No Currently Unemployed: No Education: High School Diploma/GED Difficulty w/ Childcare or Family Care: No Living arrangements: with family Occupation/Education: retired Gender identity (if verbalized by the patient): Male Spiritual care concerns: No Anes - Eval Final PreProcedure Day of Procedure 12/17/24 12:00 Patient weight: obese Heart: regular rate and rhythm Lungs: decreased breath sounds Airway: Mallampati scale class II Neurological: alert and oriented Last oral intake: >/= 8 hours ASA classification: III Emergent: no Anesthetic plan: proceed Anesthesia type and monitoring: general GIVS and standard monitoring Results Review: All pre-operative results and documents have been reviewed as part of the pre-operative evaluation. Informed Consent: The patient's anesthetic plan and its attendant risks and benefits were discussed with the patient/family/POA. Questions were solicited and answers provided to the satisfaction of the patient/family/POA.
--- NOTE | 2024-12-17 12:25 | PM.HPGS ---
History of Present Illness History of Present Illness Consent: Risks, benefits, and alternatives have been discussed and questions answered. Patient agrees to proceed with procedure. Chief complaint: Personal history of colon polyps, unspecified Narrative: Mike Davila is a 64 year old male with colon polyp in 2019 Review of Systems Review of Systems: All systems reviewed & are unremarkable except as noted in HPI and below PMFSH Past Medical History Medical History (Updated 12/17/24 @ 12:26 by Mitch Connell MD) Colon polyp Asthma COVID-19 vaccine series completed Recurrent UTI Abdominal pain UTI (urinary tract infection) Kidney stone Diabetes Depression Hypertension Encounter for screening colonoscopy Dyslipidemia Prostate cancer screening RAVINDER (obstructive sleep apnea) Resolved. CPAP titration in 2020 AHI was 2. Family History Family History Mother Diabetes mellitus Bladder cancer Father Heart disease Social History Social History Smoking packs per day: 1.75 Smoking cigarettes per day: 35.0 Years smoked: 40 Smoking pack-years: 70.00 Smoking status: Former smoker Tobacco type: cigarettes Second hand tobacco smoke exposure: No Smoking end date: 10/01/06 Additional smoking assessment comments: 30 yrs 1-2PPD Alcohol intake: current Alcohol use details: very rare Substance use: never Substance use type: does not use Lack of Transportation: No Lack of Food: Never True Current Housing: I Have Housing Concerned About Future Housing: No Difficulty Paying Gas/Electric Bills: No Difficulty Paying for Meds: No Currently Unemployed: No Education: High School Diploma/GED Difficulty w/ Childcare or Family Care: No Living arrangements: with family Occupation/Education: retired Gender identity (if verbalized by the patient): Male Spiritual care concerns: No Meds Home Medications and Allergies Home Medications Medication Instructions Recorded Confirmed Type multivitamin 1 tablet PO DAILY 09/05/19 12/17/24 History omega-3 fatty acids 1,000 mg PO DAILY 02/24/21 12/17/24 History cholecalciferol (vitamin D3) 125 125 mcg PO DAILY 07/06/23 12/17/24 History mcg (5,000 unit) tablet citalopram 20 mg tablet See Rx Instructions .Route 03/30/24 12/17/24 Rx .COMPLEX #90 tabs metformin 500 mg tablet See Rx Instructions .Route 05/17/24 12/17/24 Rx .COMPLEX #180 tabs albuterol sulfate 90 mcg/actuation 2 inh inhalation Q4H PRN shortness 05/31/24 12/07/24 Rx aerosol inhaler of breath or wheezing #8.5 grams pravastatin 40 mg tablet 40 mg PO DAILY #90 tabs 05/31/24 12/17/24 Rx cholecalciferol (vitamin D3) 1,250 1,250 mcg PO WEEKLY #14 caps 07/20/24 12/07/24 Rx mcg (50,000 unit) capsule fenofibrate micronized 134 mg See Rx Instructions .Route 11/20/24 12/17/24 Rx capsule .COMPLEX #90 caps lisinopril 40 mg tablet See Rx Instructions .Route 11/20/24 12/17/24 Rx .COMPLEX #90 tabs Allergies Allergy/AdvReac Type Severity Reaction Status Date / Time No Known Allergies Allergy Verified 12/17/24 11:05 Vital Signs Vital Signs - 24 hr 12/17/24 11:09 Temperature 97.2 F L Pulse Rate 78 Respiratory Rate 18 Blood Pressure 143/84 H Pulse Oximetry 100 Oxygen Delivery Room Air Exam Const: General: comfortable and no acute distress HENMT: Face/Nose/Sinus: Normal nares present Eyes: General: appearance normal, both eyes and all related structures Neck: Neck: no JVD Resp: Auscultation: clear to auscultation bilaterally Cardio: Rate: regular rate Rhythm: regular rhythm GI: Inspection: non-distended GI Palp: Yes Soft to palpation Skin: General skin exam: normal color Neuro: General: gait normal Speech: normal speech Extrem: General: normal to inspection Psych: Mental Status: mental status grossly normal Assessment and Plan Assessment and plan (1) Colon polyp: Code(s): K63.5 - Polyp of colon Status: Acute Assessment and Plan: colonoscopy
[2024-12-17 12:41] VITALS: BP 84/62; PULSE 74; RESP 21; O2SAT 95
[2024-12-17 12:51] VITALS: BP 109/66; PULSE 73; RESP 21; O2SAT 98
[2024-12-17 13:01] VITALS: BP 130/67; PULSE 68; RESP 24; O2SAT 99
== END 2024-12-17 13:19 | disposition home or self-care (01) ==
PROVIDERS: PCP Family Medicine; Referring Provider Internal Medicine Gastroenterology; Visit Provider Internal Medicine Gastroenterology
PROC: 0DJD8ZZ Inspection of Lower Intestinal Tract, Via Natural or Artificial Opening Endoscopic (ICD-10-PCS; CPT 45378; principal; 2024-12-17 12:30)
DX: Z12.11 Encounter for screening for malignant neoplasm of colon (principal); D12.3 Benign neoplasm of transverse colon; K57.30 Diverticulosis of large intestine without perforation or abscess without bleeding; K64.8 Other hemorrhoids; E11.9 Type 2 diabetes mellitus without complications; Z87.891 Personal history of nicotine dependence; E66.9 Obesity, unspecified; Z68.33 Body mass index [BMI] 33.0-33.9, adult
CPT/HCPCS: 45385; 82948; 88305; J2003; J2704; J7120